=== PATIENT | male | born 1965 | race Caucasian/White ===

== ENCOUNTER 2018-04-16 20:35 | Emergency (ER) | payer OTHER | END 2018-04-16 22:11 | disposition home or self-care (01) | LOC: FTE 20:35 | DX: T15.92XA Foreign body on external eye, part unspecified, left eye, initial encounter (principal); I10 Essential (primary) hypertension; E11.9 Type 2 diabetes mellitus without complications; F17.210 Nicotine dependence, cigarettes, uncomplicated; X58.XXXA Exposure to other specified factors, initial encounter; Y92.9 Unspecified place or not applicable | CPT/HCPCS: 65205; 99283-25 ==

== ENCOUNTER 2018-12-25 14:34 | Emergency (ER) | payer OTHER ==
[2018-12-25] MEDS: traMADol 50 MG TAB PO (17:41)
[2018-12-25] MEDS: DIPHTH/TET/ACEL PERTUSS (ADULT) 0.5 ML VIAL IM* (17:42)
[2018-12-25] MEDS: KETOROLAC 30 MG INJ IM (17:42)
[2018-12-25] MEDS: LIDOCAINE 1% (MPF) 5 ML VIAL INFIL (19:47)
[2018-12-25] MEDS: BACITRACIN 0.9 GM OINT TOP (19:47)
== END 2018-12-25 19:52 | disposition home or self-care (01) ==
LOC: FTE 14:34
DX: S61.412A Laceration without foreign body of left hand, initial encounter (principal); E11.9 Type 2 diabetes mellitus without complications; I10 Essential (primary) hypertension; F17.210 Nicotine dependence, cigarettes, uncomplicated; W27.0XXA Contact with workbench tool, initial encounter; Y92.9 Unspecified place or not applicable; Z23 Encounter for immunization
CPT/HCPCS: 12001; 73130-LT; 90471; 90715; 96372; 99284-25